=== PATIENT | male | born 1960 | race Caucasian/White ===

== ENCOUNTER 2021-04-11 20:27 | Emergency (ER) | payer BC, OTHER ==
[2021-04-11] MEDS ORDERED: NITROGLYCERIN/D5W 50 MG/250 ML BTL IV ONE (20:56)
[2021-04-12 00:13] LABS: Absolute Lymphocytes (CBC) 1.2 K/uL (0.7-4.9); Basophils % 0.7 % (0-1.3); Hematocrit 46.1 % (39.6-49.0); MPV 9.7 fL (7.6-11.3); RBC Red Blood Cell Count 4.78 M/uL (4.33-5.43)
[2021-04-12 00:19] LABS: Protime INR 0.95
[2021-04-12] MEDS ORDERED: ACETAMINOPHEN 500 MG TAB ONE (00:27)
[2021-04-12 00:31] LABS: ALT/SGPT 66 U/L (12-78); AST/SGOT 44 U/L (15-37); Albumin 3.4 g/dL (3.4-5.0); Alkaline Phosphatase 93 U/L (45-117); BUN Blood Urea Nitrogen 12 mg/dL (7-18); Bicarbonate 29 mmol/L (21-32); Bilirubin Direct < 0.1 mg/dL (0-0.2); Bilirubin Total 0.2 mg/dL (0.2-1.0); Glucose Level 96 mg/dL (74-106); Magnesium 2.3 mg/dL (1.8-2.4); NT PRO-BNP 104 pg/mL (<125); Potassium 4.4 mmol/L (3.5-5.1); Sodium Level 141 mmol/L (136-145); Troponin (Emerg Dept Use Only) < 0.02 ng/mL (0.0-0.045)
--- NOTE | 2021-04-12 01:40 | EDPHYS ---
Physician Documentation [facility] Name: Vipul Roca Age: 60 yrs Sex: Male : 1960 Arrival Date: 04/11/2021 Time: 20:28 Bed 16 Private MD: ED Physician Zhen Miller HPI: 04/12 00:03 This 60 yrs old Male presents to ER via Ambulatory with complaints of High mh7 Blood Pressure, Possible covid. 00:03 The patient has elevated blood pressure and discovered this at home, with a home mh7 device. Onset: The symptoms/episode began/occurred yesterday. Modifying factors: The symptoms are aggravated by nothing, The symptoms are alleviated by prescription meds, ALOK-inhibitor. Associated signs and symptoms: Pertinent positives: dizziness, headache, Pertinent negatives: chest pain, dyspnea, nausea, visual changes, vomiting, weakness. Severity of symptoms: At its worst the blood pressure was moderate, yesterday, in the emergency department the blood pressure is improved, moderately. Historical: - Allergies: 04/11 21:30 Bactrim; iw - PMHx: 21:30 Hypertension; iw - Immunization history:: Adult Immunizations up to date. - Social history:: Smoking status: unknown. ROS: 04/12 00:03 Constitutional: Negative for fever, chills, and weight loss, Eyes: Negative for injury, mh7 pain, redness, and discharge, ENT: Negative for injury, pain, and discharge, Neck: Negative for injury, pain, and swelling, Cardiovascular: Negative for chest pain, palpitations, and edema, Respiratory: Negative for shortness of breath, cough, wheezing, and pleuritic chest pain, Abdomen/GI: Negative for abdominal pain, nausea, vomiting, diarrhea, and constipation, Back: Negative for injury and pain, : Negative for injury, bleeding, discharge, and swelling, MS/Extremity: Negative for injury and deformity, Skin: Negative for injury, rash, and discoloration, Psych: Negative for depression, anxiety, suicide ideation, homicidal ideation, and hallucinations, Allergy/Immunology: Negative for hives, rash, and allergies, Endocrine: Negative for neck swelling, polydipsia, polyuria, polyphagia, and marked weight changes, Hematologic/Lymphatic: Negative for swollen nodes, abnormal bleeding, and unusual bruising. Exam: 00:03 Constitutional: This is a well developed, well nourished patient who is awake, alert, mh7 and in no acute distress. Head/Face: Normocephalic, atraumatic. Eyes: Pupils equal round and reactive to light, extra-ocular motions intact. Lids and lashes normal. Conjunctiva and sclera are non-icteric and not injected. Cornea within normal limits. Periorbital areas with no swelling, redness, or edema. ENT: Nares patent. No nasal discharge, no septal abnormalities noted. Tympanic membranes are normal and external auditory canals are clear. Oropharynx with no redness, swelling, or masses, exudates, or evidence of obstruction, uvula midline. Mucous membranes moist. Neck: Trachea midline, no thyromegaly or masses palpated, and no cervical lymphadenopathy. Supple, full range of motion without nuchal rigidity, or vertebral point tenderness. No Meningismus. Chest/axilla: Normal chest wall appearance and motion. Nontender with no deformity. No lesions are appreciated. Cardiovascular: Regular rate and rhythm with a normal S1 and S2. No gallops, murmurs, or rubs. Normal PMI, no JVD. No pulse deficits. Respiratory: Lungs have equal breath sounds bilaterally, clear to auscultation and percussion. No rales, rhonchi or wheezes noted. No increased work of breathing, no retractions or nasal flaring. Abdomen/GI: Soft, non-tender, with normal bowel sounds. No distension or tympany. No guarding or rebound. No evidence of tenderness throughout. Back: No spinal tenderness. No costovertebral tenderness. Full range of motion. Skin: Warm, dry with normal turgor. Normal color with no rashes, no lesions, and no evidence of cellulitis. MS/ Extremity: Pulses equal, no cyanosis. Neurovascular intact. Full, normal range of motion. Neuro: Awake and alert, GCS 15, oriented to person, place, time, and situation. Cranial nerves II-XII grossly intact. Motor strength 5/5 in all extremities. Sensory grossly intact. Cerebellar exam normal. Normal gait. Psych: Awake, alert, with orientation to person, place and time. Behavior, mood, and affect are within normal limits. Vital Signs: 04/11 21:26 BP 155 / 92; Pulse 62; Resp 16; Temp 99.2; Pulse Ox 99% on R/A; Weight 102.06 kg; 04/12 01:13 BP 144 / 81; Pulse 59; Resp 18; Pulse Ox 97% ; ea 01:36 BP 146 / 87; Pulse 60; Resp 18; Pulse Ox 97% on R/A; ea MDM: 01:36 Differential diagnosis: hypertensive crisis, Malignant HTN, intracerebral hemorrhage, mh7 Sinusitis. Data reviewed: vital signs, nurses notes, lab test result(s), cardiac enzymes, CBC, electrolytes, EKG, radiologic studies, CT scan, plain films. Data interpreted: Pulse oximetry: on room air is 97 %. Interpretation: normal. Counseling: I had a detailed discussion with the patient and/or guardian regarding: the historical points, exam findings, and any diagnostic results supporting the discharge/admit diagnosis, the presence of at least one elevated blood pressure reading (>120/80) during this emergency department visit, lab results, radiology results, the need for outpatient follow up, to return to the emergency department if symptoms worsen or persist or if there are any questions or concerns that arise at home. Response to treatment: the patient's symptoms have markedly improved after treatment. 01:39 Patient medically screened. [facility] 04/11 23:21 Order name: Basic Metabolic Panel; Complete Time: 00:38 [facility] 04/11 23:21 Order name: CBC with Diff; Complete Time: 00:29 [facility] 04/11 23:21 Order name: LFT's; Complete Time: 00:38 [facility] 04/11 23:21 Order name: Magnesium; Complete Time: 00:38 [facility] 04/11 23:21 Order name: NT PRO-BNP; Complete Time: 00:38 [facility] 04/11 23:21 Order name: PT-INR; Complete Time: 00:29 [facility] 04/11 23:21 Order name: Troponin (emerg Dept Use Only); Complete Time: 00:38 [facility] 04/11 23:21 Order name: XRAY Chest (1 view) [facility] 04/11 23:21 Order name: EKG; Complete Time: 23:21 [facility] 04/11 23:21 Order name: CT Head Brain wo Cont [facility] 04/11 23:22 Order name: COVID-19 : Document "Date of Symptom Onset" if Symptomatic. [facility] 04/12 01:09 Order name: SARS-COV-2 RT PCR; Complete Time: 01: [facility] 04/11 23:21 Order name: Cardiac monitoring; Complete Time: 00: [facility] 04/11 23:21 Order name: EKG - Nurse/Tech; Complete Time: 00:01 [facility] 04/11 23:21 Order name: IV Saline Lock; Complete Time: 23:39 [facility] 04/11 23:21 Order name: Labs collected and sent; Complete Time: 23:40 [facility] 04/11 23:21 Order name: O2 Per Protocol; Complete Time: 23:40 [facility] 04/11 23:21 Order name: O2 Sat Monitoring; Complete Time: 23:40 [facility] Administered Medications: 00:08 Drug: Tylenol 1000 mg Route: PO; ea Disposition: 04/12/21 01:39 Discharged to Home. Impression: Hypertension, Sinusitis, Coronavirus infection, unspecified. - Condition is Stable. - Discharge Instructions: Hypertension, Sinusitis, Adult, Dalj-hw-Obtf, COVID-19. - Prescriptions for lisinopril 40 mg Oral tablet - take 1 tablet by ORAL route once daily; 30 tablet. Augmentin 500- 125 mg Oral Tablet - take 1 tablet by ORAL route every 8 hours for 10 days; 30 tablet. - Medication Reconciliation Form, Thank You Letter, Antibiotic Education, Prescription Opioid Use form. - Follow up: Private Physician; When: 1 - 2 days; Reason: Worsening of condition, Recheck today's complaints, Continuance of care, Re-evaluation by your physician. Follow up: Yumi Garcia MD; When: 2 - 3 days; Reason: Worsening of condition, Recheck today's complaints. - Problem is new. - Symptoms have improved. Signatures: Dispatcher [employer] [facility] Stephanie Ricardo RN RN iw Antunez, Elena, RN RN ea Holmes, Maurice, MD MD 7 Corrections: (The following items were deleted from the chart) 00:10 04/11 23:23 CORONAVIRUS ordered. [facility] 04/12 02:18 01:39 04/12/2021 01:39 Discharged to Home. Impression: Hypertension; Sinusitis; ea Coronavirus infection, unspecified. Condition is Stable. Forms are Medication Reconciliation Form, Thank You Letter, Antibiotic Education, Prescription Opioid Use. Follow up: Private Physician; When: 1 - 2 days; Reason: Worsening of condition, Recheck today's complaints, Continuance of care, Re-evaluation by your physician. Follow up: Yumi Garcia; When: 2 - 3 days; Reason: Worsening of condition, Recheck today's complaints. Problem is new. Symptoms have improved. mh7
--- NOTE | 2021-04-12 01:40 | ER ---
Nurse's Notes [facility] Name: Vipul Roca Age: 60 yrs Sex: Male : 1960 Arrival Date: 04/11/2021 Time: 20:28 Bed 16 Private MD: Diagnosis: Hypertension;Sinusitis;Coronavirus infection, unspecified Presentation: 04/11 21:26 Chief complaint: Patient states: family tested positive for COVID and he had fever last iw week, was starting to feel better but tonight his BP was high, it was 168/114 at home, took an extra lisinopril and it was still high, pt states he knows he has COVID, has had symptoms for 12 days, he is only worried about his BP, and he is dizzy. Coronavirus screen: Client presents with at least one sign or symptom that may indicate coronavirus-19. Ebola Screen: Patient negative for fever greater than or equal to 101.5 degrees Fahrenheit, and additional compatible Ebola Virus Disease symptoms Patient denies exposure to infectious person. Patient denies travel to an Ebola-affected area in the 21 days before illness onset. No symptoms or risks identified at this time. Initial Sepsis Screen: Does the patient meet any 2 criteria? No. Patient's initial sepsis screen is negative. Does the patient have a suspected source of infection? No. Patient's initial sepsis screen is negative. Risk Assessment: Do you want to hurt yourself or someone else? Patient reports no desire to harm self or others. Onset of symptoms was March 30, 2021. 21:26 Method Of Arrival: Ambulatory iw 21:26 Acuity: EVAN 3 iw Historical: - Allergies: 21:30 Bactrim; iw - PMHx: 21:30 Hypertension; iw - Immunization history:: Adult Immunizations up to date. - Social history:: Smoking status: unknown. Screenin/29 01:09 Abuse screen: Denies threats or abuse. Nutritional screening: No deficits noted. ea Tuberculosis screening: No symptoms or risk factors identified. Fall Risk IV access (20 points). Assessment: 00:00 General: Appears in no apparent distress. Behavior is calm, cooperative, appropriate ea for age. Pain: Denies pain. Neuro: Level of Consciousness is awake, alert, obeys commands, Oriented to person, place, time. Cardiovascular: Patient's skin is warm and dry. Respiratory: Airway is patent Respiratory effort is even, unlabored, Respiratory pattern is regular, symmetrical. Derm: Skin is pink, warm \T\ dry. 01:36 Reassessment: Patient and/or family updated on plan of care and expected duration. Pain ea level reassessed. Patient is alert, oriented x 3, equal unlabored respirations, skin warm/dry/pink. Provider at bedside updating pt on plan of care. Vital Signs: 04/11 21:26 BP 155 / 92; Pulse 62; Resp 16; Temp 99.2; Pulse Ox 99% on R/A; Weight 102.06 kg; iw 04/12 01:13 BP 144 / 81; Pulse 59; Resp 18; Pulse Ox 97% ; ea 01:36 BP 146 / 87; Pulse 60; Resp 18; Pulse Ox 97% on R/A; ea ED Course: 04/11 20:28 Patient arrived in ED. am4 21:30 Triage completed. iw 23:09 Stephanie Ricardo, RN is Primary Nurse. iw 23:10 Zhen Miller MD is Attending Physician. [facility] 23:30 Eri Lopez, ALEC is Primary Nurse. ea 23:39 Inserted saline lock: 20 gauge in right antecubital area, using aseptic technique. dh4 Blood collected. 23:46 XRAY Chest (1 view) In Process Unspecified. EDMS 04/12 00:00 Patient has correct armband on for positive identification. Bed in low position. Call ea light in reach. Side rails up X2. front desk monitor on. Pulse ox on. NIBP on. 00:07 CT Head Brain wo Cont In Process Unspecified. EDMS 01:12 Arm band placed on right wrist. Patient placed in an exam room, on a stretcher, on ea pulse oximetry. EKG completed in triage. Results shown to MD. 01:38 Yumi Garcia MD is Referral Physician. [facility] 01:50 No provider procedures requiring assistance completed. IV discontinued, intact, ea bleeding controlled, No redness/swelling at site. Pressure dressing applied. Administered Medications: 00:08 Drug: Tylenol 1000 mg Route: PO; ea Outcome: 01:39 Discharge ordered by . [facility] 01:50 Discharged to home ambulatory. ea 01:50 Condition: stable 01:50 Discharge instructions given to patient, Instructed on discharge instructions, follow up and referral plans. medication usage, Demonstrated understanding of instructions, follow-up care, medications, Prescriptions given X 2. 01:52 Patient left the ED. danielle Signatures: Dispatcher [employer] EDStephanie Cruz, RN Eri Gil RN RN ea Huhn, Donald 4 Zhen Miller MD MD 7 Jen Junior [facility] Corrections: (The following items were deleted from the chart) 02:21 02:18 Patient left the ED. danielle santos
[2021-04-12 02:27] VITALS: TEMP 99.2
[2021-04-12 02:28] VITALS: O2SAT 97
[2021-04-12 02:30] VITALS: BP 146/87
--- NOTE | 2021-04-12 08:25 | RAD REPORT ---
EXAM DESCRIPTION: Avinash Single View04/11/2021 11:46 pm CLINICAL HISTORY: Cough COMPARISON: 2013 FINDINGS: The lungs appear clear of acute infiltrate. The heart is normal size IMPRESSION: No acute abnormalities displayed
--- NOTE | 2021-04-12 20:45 | RAD REPORT ---
EXAM DESCRIPTION: CT - Head Brain Wo Cont - 04/12/2021 6:30 am COMPARISON: None. CLINICAL HISTORY: HS MAIN Headache;Dizziness TECHNIQUE: Axial images were obtained from skull base to vertex without intravenous contrast. Imag es viewed on bone and brain windows. Multiplanar reformats were performed. Automated exposure contr ol was utilized on this examination as a dose lowering technique. FINDINGS: Brain parenchyma, ventricles, dura, meninges, and extra-axial spaces: Ventricles and sulci are normal. No abnormal attenuation of brain parenchyma is present. No acute intracranial hemor rhage or abnormal extra-axial fluid collections are present. Vascular structures: No hyperdense arteries or veins. Calvarium, mastoid air cells, paranasal sinuses and orbits: The calvarium is normal. The mastoid air cells are clear. Moderate frontal, bilateral ethmoid, right maxillary, and sphenoid sinus mucosal thi ckening are present. Orbital structures are unremarkable. IMPRESSION: 1. No acute intracranial abnormality. 2. Moderate polysinusitis. Electronically signed by: Camilo Crenshaw MD 04/12/2021 12:09 AM CDT Due to temporary technical issues with the PACS/Fluency reporting system, reports are being signed by the in house radiologists without review as a courtesy to insure prompt reporting. The interpreting radiologist is fully responsible for the content of the report.
--- NOTE | 2021-04-16 12:09 | EKG ---
Test Date: 2021-04-11 Test Time: 23:46:51 Tumbling Instructor: MARK MEASUREMENT RESULTS: Intervals: Rate: 52 AR: 178 QRSD: 88 QT: 446 QTc: 414 [place]: P: 48 AR: 178 QRS: 18 T: 31 INTERPRETIVE STATEMENTS: Sinus bradycardia Otherwise normal ECG Compared to ECG 07/20/2006 11:38:09 No significant changes Electronically Signed On 04-16-21 11:55:37 CDT by Aric Agarwal
== END 2021-04-12 02:18 | disposition home or self-care (01) ==
LOC: ER 20:27
DX: I10 Essential (primary) hypertension (principal); U07.1 COVID-19; J32.9 Chronic sinusitis, unspecified
CPT/HCPCS: 93005; 85025; 80048; 36415; 83735; 85610; 80076; 84484; 83880; 70450; 71045; 99284; U0003

== ENCOUNTER 2024-06-25 21:44 | Emergency (ER) | payer OTHER ==
[2024-06-25] MEDS ORDERED: NA CHLORIDE 0.9% 1,000 ML ONE (22:03)
[2024-06-25] MEDS ORDERED: FAMOTIDINE 20 MG/2 ML VIAL IV ONE (22:03)
[2024-06-25] MEDS ORDERED: ONDANSETRON 4 MG/2 ML VIAL ONE (22:03)
[2024-06-25] MEDS ORDERED: MORPHINE 4 MG/ML SYR ONE ×2 (22:03→23:17)
[2024-06-25 22:24] LABS: Absolute Basophils 0.1 K/uL (0-0.5); Absolute Eosinophils 0.2 K/uL (0-0.5); Hematocrit 44.6 % (39.6-49.0); MPV 8.4 fL (7.6-11.3)
--- NOTE | 2024-06-25 22:26 | RAD REPORT ---
EXAM DESCRIPTION: US - Abdomen Exam Limited - 06/25/2024 10:19 pm CLINICAL HISTORY: ABD PAIN COMPARISON: No comparisons FINDINGS: The gallbladder demonstrates no gallstones. Mild sludge present. No pericholecystic fluid or gallbladder wall thickening. The common bile duct is mildly dilated measuring 7 mm. The liver demonstrates no findings of intrahepatic biliary dilatation. IMPRESSION: Common bile duct is mildly dilated at 7 mm. Correlate with LFTs. If abnormal, could cons ider further evaluation with MRCP. Negative for cholelithiasis or sonographic evidence of acute andi cystitis.
[2024-06-25 22:27] LABS: Albumin 3.4 g/dL (3.4-5.0); Anion Gap 10.2 mEq/L (5.0-15.0); Bilirubin Total 0.4 mg/dL (0.2-1.0); Globulin 3.3 g/dL (2.3-3.5); Potassium 4.2 mEq/L (3.5-5.1); Protein, Total 6.7 g/dL (6.4-8.2); Troponin High Sensitivity 4.3 pg/mL (<58.9)
[2024-06-25 22:32] LABS: Absolute Lymphocytes (CBC) 2.9 K/uL (0.7-4.9); Absolute Monocytes 0.8 K/uL (0.1-1.3); Absolute Neutrophil 3.4 K/uL (1.8-8.0); Basophils % 0.7 % (0-1.3); Eosinophils % 3.2 % (0-4.4); Lymphocytes % 39.8 % (15.3-44.8); MCH 33.3 pg (27.0-35.0); MCHC 33.7 g/dL (32.0-36.0); Monocytes % 10.6 % (3.3-12.3); Neutrophils % 45.7 % (41.7-73.7); Nucleated Red Blood Cells % 0.2 % (0-0); Platelets 206 thou/uL (152-406); RBC Red Blood Cell Count 4.51 M/uL (4.33-5.43); Red Cell Distribution Width 14.1 % (12.1-15.2)
[2024-06-25 22:53] LABS: Specific Gravity 1.006 (1.005-1.030); Sqamous Epithelial None Seen /HPF (None Seen); Urine Bacteria None Seen /HPF (<20); Urine Bilirubin NEGATIVE (Negative); Urine Blood Negative (Negative); Urine Clarity Clear (Clear); Urine Color Colorless (Yellow); Urine Culture Reflex Order NOT NEEDED; Urine Glucose NEGATIVE (Negative); Urine Ketones NEGATIVE (Negative); Urine Microscopic Reflex YN ORDER UMIC; Urine Mucus Slight /HPF (None Seen); Urine Nitrite NEGATIVE (Negative); Urine Protein NEGATIVE (Negative); Urine RBC <5 /HPF (None Seen); Urine Urobilinogen Normal (Normal); Urine WBC None Seen /HPF (<5)
--- NOTE | 2024-06-26 00:31 | ER ---
Nurse's Notes [facility] Name: Vipul Roca Age: 63 yrs Sex: Male : 1960 Arrival Date: 06/25/2024 Time: 21:44 Bed 6 Private MD: Diagnosis: Choledocholithiasis;Elevated lipase;Abnormal results of liver function studies;Upper abdominal pain, unspecified Presentation: 06/25 21:46 Chief complaint: Patient states: sudden abdominal pain. No nausea, no vomiting. pain ha1 08/24. 21:46 Coronavirus screen: Vaccine status: Patient reports being unvaccinated. Ebola Screen: ha1 No symptoms or risks identified at this time. Initial Sepsis Screen: Does the patient meet any 2 criteria? No. Patient's initial sepsis screen is negative. Does the patient have a suspected source of infection? No. Patient's initial sepsis screen is negative. Risk Assessment: Do you want to hurt yourself or someone else? Patient reports no desire to harm self or others. Onset of symptoms was June 25, 2024. 21:46 Method Of Arrival: Wheelchair ha1 21:46 Acuity: EVAN 3 ha1 Triage Assessment: 21:46 General: Appears uncomfortable, Behavior is cooperative. Pain: Complains of pain in ha1 right upper quadrant Pain does not radiate. Pain currently is 10 out of 10 on a pain scale. Neuro: Level of Consciousness is awake, alert, obeys commands, Oriented to person, place, time, situation. Cardiovascular: Capillary refill < 3 seconds Patient's skin is warm and dry. Respiratory: Airway is patent Respiratory effort is even, unlabored, Respiratory pattern is regular, symmetrical. GI: Abdomen is round non-distended, obese, Reports upper abdominal pain. Musculoskeletal: Circulation, motion, and sensation intact. Range of motion: intact in all extremities. Historical: - Allergies: 21:57 Bactrim; cp4 - PMHx: 21:57 Hypertension; cp4 - Immunization history:: Adult Immunizations up to date. - Infectious Disease History:: Denies. - Social history:: Smoking status: Patient denies any tobacco usage or history of. Patient uses Patient uses alcohol, on a daily basis. beer and marijuanna. Screenin:57 [facility] ED Fall Risk Assessment (Adult) History of falling in the last 3 months, cp4 including since admission No falls in past 3 months (0 pts) Confusion or Disorientation No (0 pts) Intoxicated or Sedated No (0 pts) Impaired Gait No (0 pts) Mobility Assist Device Used No (0 pt) Altered Elimination No (0 pt) Score/Fall Risk Level 0 - 2 = Low Risk Oriented to surroundings, Maintained a safe environment, Assessed \T\ reinforced patient's understanding of fall precautions, Hourly rounding (assess needs \T\ fall precautionary measures) done. Abuse screen: Denies threats or abuse. Nutritional screening: No deficits noted. Tuberculosis screening: No symptoms or risk factors identified. Assessment: 21:54 General: Appears distressed, uncomfortable, Behavior is calm, cooperative, appropriate cp4 for age. Pain: Complains of pain in abdomen Pain currently is 10 out of 10 on a pain scale. Neuro: Level of Consciousness is awake, alert, obeys commands, Oriented to person, place, time, situation. Cardiovascular: No deficits noted. Respiratory: Airway is patent Respiratory effort is even, unlabored. GI: Abdomen is obese, Bowel sounds present X 4 quads. Abdomen is tender to palpation in right upper quadrant. : No deficits noted. EENT: No deficits noted. Derm: No deficits noted. Musculoskeletal: No deficits noted. 23:00 Reassessment: Patient appears in no apparent distress at this time. Patient and/or cp4 family updated on plan of care and expected duration. Pain level reassessed. Patient is alert, oriented x 3, equal unlabored respirations, skin warm/dry/pink. 06/26 00:00 Reassessment: Patient appears in no apparent distress at this time. Patient and/or cp4 family updated on plan of care and expected duration. Pain level reassessed. Patient is alert, oriented x 3, equal unlabored respirations, skin warm/dry/pink. Vital Signs: 06/25 21:46 BP 171 / 101; Pulse 72; Resp 17 S; Temp 98.1; Pulse Ox 98% on R/A; Weight 105.23 kg; ha1 Height 5 ft. 10 in. ; 22:56 BP 169 / 96; Pulse 62; Resp 18; Pulse Ox 97% ; cp4 23:40 BP 146 / 79; Pulse 57; Resp 18; Pulse Ox 95% ; cp4 06/26 00:20 BP 140 / 79; Pulse 59; Resp 18; Pulse Ox 97% ; cp4 01:27 BP 130 / 79; Pulse 57; Resp 18; Pulse Ox 98% ; cp4 02:05 BP 127 / 76; Pulse 58; Resp 18; Temp 97.8; Pulse Ox 95% ; cp4 06/25 21:46 Body Mass Index 33.29 (105.23 kg, 177.8 cm) ha1 ED Course: 06/25 21:45 Patient arrived in ED. jj6 21:46 Carlie Bernal FNP-C is PHCP. kb 21:46 Chris Clifford DO is Attending Physician. kb 21:54 Ayah Woods is Primary Nurse. cp4 21:57 Bed in low position. Call light in reach. Side rails up X2. cp4 21:57 Inserted saline lock: 20 gauge in right antecubital area, using aseptic technique. cp4 Blood collected. Flushed with 10 mL NS. 22:00 Triage completed. ha1 22:05 Initial lab(s) drawn, by me, sent to lab. cp4 22:21 US Abdomen Limited In Process Unspecified. EDMS 22:47 CT Abd/Pelvis - IV Contrast Only In Process Unspecified. EDMS 06/26 00:28 0023 called [facility] for transfer. talked to Na. sp 01:36 Provided Education on: transfer. cp4 01:36 Arm band placed on right wrist. Patient placed in waiting room. cp4 01:36 No provider procedures requiring assistance completed. Patient transferred, IV remains cp4 in place. Administered Medications: 06/25 22:12 Drug: Famotidine IVP 20 mg IVP once; dilute with 10 mL 0.9% NaCl; give over 2 minutes cp4 Route: IVP; Site: right antecubital; 23:45 Follow up: Response: No adverse reaction cp4 22:13 Drug: NS 0.9% IV 1000 ml IV at 1 bolus Per protocol; 1000 mL bolus Route: IV; Rate: 1 cp4 bolus; Site: right antecubital; 23:37 Follow up: Response: No adverse reaction; IV Status: Completed infusion; IV Intake: cp4 1000ml 22:13 Drug: Ondansetron IVP 4 mg IVP once; over 2 minutes Route: IVP; Site: right antecubital;cp4 23:45 Follow up: Response: No adverse reaction cp4 22:13 Drug: morphine IVP or IV 4 mg IVP once over 4 mins Route: IVP; Infused Over: 4 mins; cp4 Site: right antecubital; 23:45 Follow up: Response: No adverse reaction cp4 23:20 Drug: morphine IVP or IV 4 mg IVP once over 4 mins Route: IVP; Infused Over: 4 mins; bm8 Site: right antecubital; 23:45 Follow up: Response: No adverse reaction cp4 Medication: 21:57 VIS not applicable for this client. cp4 Intake: 23:37 IV: 1000ml; Total: 1000ml. cp4 Outcome: 06/26 00:30 ER care complete, transfer ordered by . kb 01:36 Transferred by ground EMS to [facility], Transfer form completed. cp4 X-rays sent w/ patient. 01:36 Condition: stable 01:36 Instructed on the need for transfer, 02:10 Patient left the ED. cp4 Signatures: Dispatcher [employer] EDMS Carlie Bernal, CODING QUALITY COORDINATOR-C CODING QUALITY COORDINATOR-Ckb Jeannette Lebron Jennifer [id number] Melissa Campos, RN RN Ayah Priest cp4 Romaine Galaviz, RN RN [id number]
--- NOTE | 2024-06-26 00:31 | EDPHYS ---
Physician Documentation [facility] Name: Vipul Roca Age: 63 yrs Sex: Male : 1960 Arrival Date: 06/25/2024 Time: 21:44 Bed 6 Private MD: ED Physician Chris Clifford HPI: 06/26 00:13 This 63 yrs old Male presents to ER via Wheelchair with complaints of Abdominal Pain. 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 Denies fever, n/v/d. States he has never experienced this pain before. . Historical: - Allergies: 06/25 21:57 Bactrim; cp4 - PMHx: 21:57 Hypertension; cp4 - Immunization history:: Adult Immunizations up to date. - Infectious Disease History:: Denies. - Social history:: Smoking status: Patient denies any tobacco usage or history of. Patient uses Patient uses alcohol, on a daily basis. beer and marijuanna. ROS: 22:55 Constitutional: As per HPI kb Exam: 22:55 Head/Face: Normocephalic, atraumatic. ENT: Moist Mucous membranes Cardiovascular: kb Regular rate Respiratory: Respirations even and unlabored. No increased work of breathing. Talking in full sentences Abdomen/GI: Soft, non-tender. No distention Skin: Warm, dry with normal turgor. Normal color. MS/ Extremity: Pulses equal, no cyanosis. Neurovascular intact. Full, normal range of motion. Neuro: Awake and alert, GCS 15, oriented to person, place, time, and situation. Moves all extremities. Normal gait. 22:55 Constitutional: The patient appears alert, awake, in obvious pain, 22:55 ECG was reviewed by the Attending Physician. Vital Signs: 21:46 BP 171 / 101; Pulse 72; Resp 17 S; Temp 98.1; Pulse Ox 98% on R/A; Weight 105.23 kg; ha1 Height 5 ft. 10 in. ; 22:56 BP 169 / 96; Pulse 62; Resp 18; Pulse Ox 97% ; cp4 23:40 BP 146 / 79; Pulse 57; Resp 18; Pulse Ox 95% ; cp4 06/26 00:20 BP 140 / 79; Pulse 59; Resp 18; Pulse Ox 97% ; cp4 01:27 BP 130 / 79; Pulse 57; Resp 18; Pulse Ox 98% ; cp4 02:05 BP 127 / 76; Pulse 58; Resp 18; Temp 97.8; Pulse Ox 95% ; cp4 06/25 21:46 Body Mass Index 33.29 (105.23 kg, 177.8 cm) ha1 MDM: 06/25 21:46 Patient medically screened. 06/26 00:27 Differential diagnosis: cholecystitis, Cholelithiasis, non-specific abd pain, kb pancreatitis. Data reviewed: vital signs, nurses notes. Consideration of Admission/Observation Escalation of care including admission/observation considered. pt will be transferred due to lack of GI services at this facility. Historians other than the Patient: Daughter/Son: daughter. Counseling: I had a detailed discussion with the patient and/or guardian regarding the historical points, exam findings, and any diagnostic results supporting the discharge/admit diagnosis, lab results, radiology results, the need to transfer to another facility, [facility] does not immediately have the required specialist. 01:04 ED course: Discussed case with Dr Fontenot and he accepts patient to the medicine floor ms3 at [facility]. Patient and his family understand/ agree with plan.. 06/25 21:56 Order name: CBC with Diff; Complete Time: 22:34 kb 06/25 21:56 Order name: CMP; Complete Time: 22:29 kb 06/25 21:56 Order name: Lipase; Complete Time: 22:29 kb 06/25 21:56 Order name: Urinalysis w/ reflexes; Complete Time: 22:54 kb 06/25 21:56 Order name: Troponin High Sensitivity; Complete Time: 22:29 kb 06/25 21:56 Order name: CT Abd/Pelvis - IV Contrast Only kb 06/25 21:56 Order name: US Abdomen Limited; Complete Time: 22:29 kb 06/25 21:56 Order name: EKG; Complete Time: 21:57 kb 06/25 21:56 Order name: IV Saline Lock; Complete Time: 22:05 kb 06/25 21:56 Order name: Labs collected and sent; Complete Time: 22:05 kb 06/25 21:56 Order name: EKG - Nurse/Tech; Complete Time: 22:12 kb EC/11 22:55 Rate is 61 beats/min. Rhythm is regular. QRS [place] is Normal. GA interval is normal at kb 168 msec. QRS interval is normal at 94 msec. QT interval is normal at 404 msec. Administered Medications: 22:12 Drug: Famotidine IVP 20 mg IVP once; dilute with 10 mL 0.9% NaCl; give over 2 minutes cp4 Route: IVP; Site: right antecubital; 23:45 Follow up: Response: No adverse reaction cp4 22:13 Drug: NS 0.9% IV 1000 ml IV at 1 bolus Per protocol; 1000 mL bolus Route: IV; Rate: 1 cp4 bolus; Site: right antecubital; 23:37 Follow up: Response: No adverse reaction; IV Status: Completed infusion; IV Intake: cp4 1000ml 22:13 Drug: Ondansetron IVP 4 mg IVP once; over 2 minutes Route: IVP; Site: right antecubital;cp4 23:45 Follow up: Response: No adverse reaction cp4 22:13 Drug: morphine IVP or IV 4 mg IVP once over 4 mins Route: IVP; Infused Over: 4 mins; cp4 Site: right antecubital; 23:45 Follow up: Response: No adverse reaction cp4 23:20 Drug: morphine IVP or IV 4 mg IVP once over 4 mins Route: IVP; Infused Over: 4 mins; bm8 Site: right antecubital; 23:45 Follow up: Response: No adverse reaction cp4 Disposition: 23:03 I was immediately available on-site in the Emergency Department for consultation in the ms3 care of the patient. Disposition Summary: 06/26/24 00:30 Transfer Ordered Notes: Transfer Location: [facility] kb Reason: Higher level of care kb Condition: Stable kb Problem: new kb Symptoms: are unchanged kb Accepting Physician: (06/26/24 02:10) cp4 Diagnosis - Choledocholithiasis kb - Elevated lipase kb - Abnormal results of liver function studies kb - Upper abdominal pain, unspecified kb Forms: - Medication Reconciliation Form kb - SBAR form kb Signatures: Dispatcher [employer] EDCarlie Mckeon, TORITO GREY-Chris Lazo DO DO ms3 Melissa Campos RN RN haAyah Smith cp4 Romaine Galaviz RN RN bm8 Corrections: (The following items were deleted from the chart) 21: 21:57 CBC+H.LAB.BRZ ordered. EDMS EDMS 21:57 COMPREHENSIVE METABOLIC PANEL+C.LAB.BRZ ordered. EDMS EDMS : 21:57 LIPASE+C.LAB.BRZ ordered. EDMS EDMS : 21:57 Urinalysis+U.LAB.BRZ ordered. EDMS EDMS 21:57 Troponin High Sensitivity+C.LAB.BRZ ordered. EDMS EDMS 06/26 02:10 00:30 dr medrano cp4
[2024-06-26 02:22] VITALS: BP 127/76; TEMP 97.8; O2SAT 95
--- NOTE | 2024-06-26 11:01 | RAD REPORT ---
EXAM DESCRIPTION: CT - Abdomen Pelvis W Contrast - 06/25/2024 10:45 pm CLINICAL HISTORY: Abd pain. TECHNIQUE: Axial computed tomography images of the abdomen and pelvis with intravenous contrast. S agittal and coronal reformatted images were created and reviewed. This CT exam was performed using one or more of the following dose reduction techniques: automated exposure control, adjustment of t he mA and/or kV according to patient size, and/or use of iterative reconstruction technique. COMPARISON: No relevant prior studies available. FINDINGS: Lung bases: Unremarkable. No mass. No consolidation. ABDOMEN: Liver: The liver is enlarged and mildly diffusely low in density compatible with steatosis. Gallbladder and bile ducts: Unremarkable. No calcified stones. No ductal dilation. Pancreas: Unremarkable. No mass. No ductal dilation. Spleen: Unremarkable. No splenomegaly. Adrenals: Unremarkable. No mass. Kidneys and ureters: Unremarkable. Normal renal cortical enhancement. No calculi. No hydronephros is. Parapelvic cysts on the left. Stomach and bowel: Moderate stool. No bowel obstruction. Scattered colonic diverticula without ann marie cent inflammatory change. No appreciable mucosal thickening. PELVIS: Appendix: Normal caliber appendix. No findings to suggest acute appendicitis. Bladder: The urinary bladder is distended. Reproductive: Unremarkable as visualized. ABDOMEN and PELVIS: Intraperitoneal space: Unremarkable. No free air. No significant fluid collection. Bones/joints: Degenerative changes most pronounced, moderate at L4-L5 and to a lesser extent at L5- S1. Prior bilateral posterior fusion, decompression and interposition graft placement at L3-L4. Rem ote left sided rib fractures. No dislocation. Soft tissues: Small right fat-containing inguinal hernia. Vasculature: Mild atherosclerotic disease. No abdominal aortic aneurysm. Lymph nodes: Unremarkable. No enlarged lymph nodes. IMPRESSION: 1. Moderate stool. No bowel obstruction. 2. Other findings as above. Electronically signed by: Basim Rojas MD 06/26/2024 12:06 AM CDT Due to temporary technical issues with the PACS/Fluency reporting system, reports are being signed by the in house radiologist without review as a courtesy to ensure prompt reporting. The interpreting r adiologist is fully responsible for the content of the report.
--- NOTE | 2024-06-26 13:45 | EKG ---
Test Date: 2024-06-25 Test Time: 22:06:29 House Decorator: RV MEASUREMENT RESULTS: Intervals: Rate: 61 WY: 168 QRSD: 94 QT: 402 QTc: 404 [place]: P: 60 WY: 168 QRS: 24 T: 35 INTERPRETIVE STATEMENTS: Normal sinus rhythm Normal ECG Compared to ECG 04/11/2021 23:46:51 Sinus bradycardia no longer present Electronically Signed On 06-26-24 13:43:31 CDT by Nathaniel Garcia
== END 2024-06-26 02:10 | disposition short-term general hospital (02) ==
LOC: ER 21:44
DX: K80.50 Calculus of bile duct without cholangitis or cholecystitis without obstruction (principal); R74.8 Abnormal levels of other serum enzymes; R94.5 Abnormal results of liver function studies; I10 Essential (primary) hypertension
CPT/HCPCS: 96361; 93005; 85025; 81001; 36415; 84484; 83690; 80053; 74177; 76705; 96375; 96374; 99285; Q9967; J2405; J7030